=== PATIENT | male | born 1980 | race Two or more races ===

== ENCOUNTER 2024-09-13 | Emergency (ER) | payer OTHER ==
[~2024-09-13] VITALS: Ht 170.2 cm; Wt 81.6 kg
[2024-09-13] MEDS ORDERED: ADDERALL 10 MG10 MG PO (00:17)
[2024-09-13] MEDS ORDERED: FAMOtidine 10 MG/ML (4ML VIAL) IV PUSH STA (01:00)
[2024-09-13] MEDS ORDERED: KETOROLAC TROMETHAMINE 30 MG VIAL IV STA (01:00)
[2024-09-13] MEDS ORDERED: LACTULOSE 20 G/30 ML BLIST.PACK PO STA (01:01)
[2024-09-13] MEDS ORDERED: MINERAL OIL 30 ML BLIST.PACK PO STA (01:01)
[2024-09-13] MEDS ORDERED: METOCLOPRAMIDE HCL 5 MG/ML VIAL IM STA (01:02)
[2024-09-13] MEDS ORDERED: MAGNESIUM HYDROXIDE 400 MG/5 ML ML PO STA (01:02)
[2024-09-13] MEDS ORDERED: BISACODYL 10 MG/SUPP.RECT SUPP.RECT RECTAL STA (03:14)
[2024-09-13] MEDS ORDERED: BISACODYL 5 MG TABLET.EC PO STA (03:15)
== END 2024-09-13 04:51 | disposition home or self-care (01) ==
LOC: ER
DX: K21.9 Gastro-esophageal reflux disease without esophagitis (principal); K59.01 Slow transit constipation